=== PATIENT | female | born 1995 | race Caucasian/White ===

== ENCOUNTER → 2024-03-13 11:04 | Outpatient (REF) | payer OTHER, SELFPAY | LOC: RAD 11:04 | PROVIDERS: ATTENDING PHYSICIAN Obstetrics & Gynecology; REFERRING PHYSICIAN Advanced Practice Midwife | DX: O26.851 Spotting complicating pregnancy, first trimester (principal) | CPT/HCPCS: 36415; 76801; 76802; 76817; 86850; 86900; 86901; J2790 ==

== ENCOUNTER → 2024-11-01 15:03 | Outpatient (REF) | payer OTHER, SELFPAY | LOC: RAD 15:03 | PROVIDERS: ATTENDING PHYSICIAN Advanced Practice Midwife | DX: I82.402 Acute embolism and thrombosis of unspecified deep veins of left lower extremity (principal) | CPT/HCPCS: 93971 ==

== ENCOUNTER → 2024-12-19 15:49 | Outpatient (REF) | payer OTHER, SELFPAY | LOC: REG 15:49 | PROVIDERS: ATTENDING PHYSICIAN Obstetrics & Gynecology | DX: Z34.02 Encounter for supervision of normal first pregnancy, second trimester (principal) | CPT/HCPCS: 36415; 86850; 86900; 86901; J2790 ==